=== PATIENT | female | born 2000 | race Caucasian/White ===

== ENCOUNTER → 2020-05-25 | Outpatient (REF) | payer OTHER, SELFPAY ==
[2020-05-25 17:02] LABS: BASO % 0.4 % (0.0-1.0); EOS # 0.1 10^3/uL (0.0-0.5); EOS % 0.9 % (0.0-3.0); HEMATOCRIT 38.4 % (36.0-47.0); HEMOGLOBIN 12.7 g/dl (12.0-15.5); LYMPH # 2.4 10^3/uL (1.5-5.0); LYMPH % 31.2 % (24.0-44.0); MEAN CORPUSCULAR HEMOGLOBIN 30.2 pg (27.0-33.0); MEAN CORPUSCULAR HGB CONC 33.1 g/dl (32.0-36.5); MEAN CORPUSCULAR VOLUME 91.4 fl (80.0-96.0); MONO # 0.8 10^3/uL (0.0-0.8); MONO % 9.9 % (2.0-8.0); NEUTROPHILS # 4.3 10^3/uL (1.5-8.5); NEUTROPHILS % 57.3 % (36.0-66.0); PLATELET COUNT, AUTOMATED 272 10^3/uL (150-450); WHITE BLOOD COUNT 7.5 10^3/uL (4.0-10.0)
[2020-05-25 17:34] LABS: ALBUMIN 4.1 GM/DL (3.2-5.2); ALT/SGPT 21 U/L (12-78); BILIRUBIN,TOTAL 0.3 MG/DL (0.2-1.0); BLOOD UREA NITROGEN 15 MG/DL (7-18); CALCIUM LEVEL 9.2 MG/DL (8.5-10.1); CARBON DIOXIDE LEVEL 28 MEQ/L (21-32); CHLORIDE LEVEL 105 MEQ/L (98-107); CREATININE FOR GFR 0.82 MG/DL (0.55-1.30); FREE T4 0.76 NG/DL (0.78-1.33); GLUCOSE, FASTING 83 MG/DL (70-100); POTASSIUM SERUM 4.1 MEQ/L (3.5-5.1); SODIUM LEVEL 141 MEQ/L (136-145); TOTAL PROTEIN 7.3 GM/DL (6.4-8.2)
== END ==
LOC: M SFHCADAM 14:32
PROVIDERS: ATTEND Family Medicine
DX: Z00.00 Encounter for general adult medical examination without abnormal findings (principal); Z86.39 Personal history of other endocrine, nutritional and metabolic disease; N96 Recurrent pregnancy loss

== ENCOUNTER → 2020-06-16 | Outpatient (CLI) | payer SELFPAY ==
--- NOTE | 2020-06-16 15:13 | REP ---
INDICATION: [id number] HX PREG LOSS/NOT CURRENTLY PREG COMPARISON: None. TECHNIQUE: Transabdominal pelvic ultrasound with limited color Doppler evaluation of the ovaries. FINDINGS: Bladder is unremarkable and measures . Normal anteverted uterus measures 7.6 x 3.7 x 4.6 cm. The endometrial complex measures 6 mm thickness. No discrete uterine or endometrial abnormalities are appreciated. Bilateral ovaries appear normal. Right ovary measures 3.2 x 1.5 x 2.3 cm. Left ovary measures 3.3 x 2.0 x 2.9 cm and includes 1.7 cm dominant follicle. No pelvic fluid or adnexal mass lesion. IMPRESSION: Normal pelvic ultrasound. <Electronically signed by Tomás Obando > 06/16/20 [id number]
== END ==
LOC: M WHC 14:36
PROVIDERS: ATTEND Nurse Practitioner Women's Health
DX: Z87.59 Personal history of other complications of pregnancy, childbirth and the puerperium (principal)

== ENCOUNTER → 2022-02-26 | Outpatient (CLI) | payer SELFPAY | LOC: M RAD 11:18 | PROVIDERS: ATTEND Family Medicine | DX: Z34.90 Encounter for supervision of normal pregnancy, unspecified, unspecified trimester (principal); Z3A.01 Less than 8 weeks gestation of pregnancy ==